=== PATIENT | male | born 1990 | race Caucasian/White ===

== ENCOUNTER 2020-06-05 11:05 | Emergency (ER) | payer SELFPAY ==
[~2020-06-05] VITALS: Ht 177.8 cm; Wt 113.4 kg
[2020-06-05 11:48] LABS: Basophils # (auto) 0 10 ^3/uL (0-0.2); Basophils % (auto) 0.4 % (0.0-2.0); Eosinophils # (auto) 0.3 10 ^3/uL (0-0.8); Eosinophils % (auto) 3.9 % (0.0-7.0); Hemoglobin 14.9 g/dL (13.5-17.5); Lymphocytes # (auto) 1.9 10 ^3/uL (0.4-5.4); Lymphocytes % (auto) 22.7 % (10.0-50.0); Mean Corpuscular Hemoglobin 30.3 pg (28.0-32.0); Mean Corpuscular Hgb Conc. 33.9 g/dL (32.0-36.0); Mean Corpuscular Volume 89.4 fL (80.0-100.0); Monocytes # (auto) 0.7 10 ^3/uL (0-1.3); Monocytes % (auto) 7.9 % (0.0-12.0); Neutrophils # (auto) 5.3 10 ^3/uL (1.6-8.6); Neutrophils % (auto) 65.1 % (37.0-80.0); Platelet Count (auto) 265 10^3/uL (140-450); Red Blood Cells 4.93 10^6/uL (4.5-5.90); Red Cell Distribution Width 12.6 % (11.8-14.3); White Blood Cell 8.2 10^3/uL (4.4-10.8)
[2020-06-05 12:06] LABS: INR 1.03 (0.9-1.15); Partial Thromboplastin Time 28.9 sec (23.0-31.2)
[2020-06-05 12:12] LABS: Albumin 4.1 g/dL (3.4-5.0); Anion Gap 6 (5-15); Blood Urea Nitrogen 14 mg/dL (7-18); Calcium 8.9 mg/dL (8.5-10.1); Carbon Dioxide 26 mmol/L (21-32); Chloride 107 mmol/L (98-107); Glucose 90 mg/dL (74-106); Sodium 139 mmol/L (136-145)
[2020-06-05 12:17] LABS: Alanine Aminotransferase 47 U/L (16-61); Alkaline Phosphatase 83 U/L (45-117); Aspartate Aminotransferase 22 U/L (15-37); BUN/Creatinine Ratio 16.3; Bilirubin, Total 0.4 mg/dL (0.2-1.0); GFR African American 133 mL/min; GFR Non-African American 110 mL/min; Total Protein 7.4 g/dL (6.4-8.2)
[2020-06-05 14:22] VITALS: BP 120/63
== END 2020-06-05 14:34 | disposition home or self-care (01) ==
LOC: ER 11:05
DX: R07.89 Other chest pain (principal); R42 Dizziness and giddiness; F41.9 Anxiety disorder, unspecified; Z88.5 Allergy status to narcotic agent
CPT/HCPCS: 36415; 71046; 80053; 82962; 83880; 84484; 85025; 85610; 85730; 93005